=== PATIENT | female | born 1965 | race Caucasian/White ===

== ENCOUNTER 2022-09-06 07:51 | Outpatient (REF) | payer BC, SELFPAY ==
[2022-09-06 11:37] LABS: Appearance Urine Cloudy; Color Urine Yellow; Glucose Urine UA Negative (Negative); Leukocyte Esterase Urine Negative (Negative); Nitrite Urine Negative (Negative); Specific Gravity - Urine 1.015 (1.005-1.025); Urine Blood Negative (Negative); Urine Ketones Negative (Negative); Urine Protein Negative (Neg-Trace)
[2022-09-06 12:10] LABS: Alanine Aminotransferase 17 U/L (0-31); Albumin Level 4.3 g/dL (3.5-5.0); Alkaline Phosphatase 65 U/L (39-117); Anion Gap 11 (12-20); Aspartate Amino Transferase 13 U/L (5-31); Bilirubin Total 0.5 mg/dL (0.0-1.0); Blood Urea Nitrogen 15 mg/dL (9-16); Calcium 9.6 mg/dL (8.4-10.2); Carbon Dioxide 27 mmol/L (22-29); Chloride 105 mmol/L (96-108); Cholesterol 297 mg/dL; Estimated Glomerular Filt Rate > 60; Glucose Fasting 133 mg/dL (60-99); HDL Cholesterol 63 mg/dL; LDL Cholesterol Calculated 192 mg/dl; Potassium 4.1 mmol/L (3.3-5.1); Sodium 139 mmol/L (135-145); TSH reflex Free T4 1.08 uIU/mL (0.32-4.0); Total Protein 6.8 g/dL (6.5-8.0); Triglycerides 211 mg/dL
== END 2022-09-06 07:52 | disposition home or self-care (01) ==
LOC: HO.HMGCLDS 07:51
PROVIDERS: PCP Nurse Practitioner Family; Visit Provider Nurse Practitioner Family
DX: Z00.00 Encounter for general adult medical examination without abnormal findings (principal)
CPT/HCPCS: 36415; 80053; 80061; 81003; 84443

== ENCOUNTER 2023-04-29 07:43 | Outpatient (REF) | payer BC, SELFPAY ==
[2023-04-29 11:35] LABS: Estimated Average Glucose 120 mg/dL; Hemoglobin A1C 152.2036 umol/L; Hemoglobin A1c % 5.8 %
[2023-04-29 11:57] LABS: Alanine Aminotransferase 20 U/L (0-31); Albumin Level 4.3 g/dL (3.5-5.0); Alkaline Phosphatase 66 U/L (39-117); Anion Gap 20 (12-20); Aspartate Amino Transferase 16 U/L (5-31); Bilirubin Total 0.4 mg/dL (0.0-1.0); Blood Urea Nitrogen 12 mg/dL (9-16); Calcium 9.7 mg/dL (8.4-10.2); Carbon Dioxide 20 mmol/L (22-29); Chloride 104 mmol/L (96-108); Cholesterol 209 mg/dL; Estimated Glomerular Filt Rate > 60; Glucose Fasting 129 mg/dL (60-99); HDL Cholesterol 61 mg/dL; LDL Cholesterol Calculated 125 mg/dl; Potassium 4.1 mmol/L (3.3-5.1); Sodium 140 mmol/L (135-145); Total Protein 7.1 g/dL (6.5-8.0); Triglycerides 118 mg/dL
== END 2023-04-29 07:44 | disposition home or self-care (01) ==
LOC: HO.HMGCLDS 07:43
PROVIDERS: PCP Nurse Practitioner Family; Visit Provider Nurse Practitioner Family
DX: R73.01 Impaired fasting glucose (principal); E78.5 Hyperlipidemia, unspecified
CPT/HCPCS: 36415; 80053; 80061; 83036

== ENCOUNTER 2023-05-05 14:09 | Outpatient (AMB) | payer BC, SELFPAY ==
--- NOTE | 2023-05-05 14:10 | MHC.PC.OV ---
Intake Visit Reasons: [phone] 4 month f/u labs Allergies No Known Allergies Allergy (Verified 05/05/23 14:11) Medication List - Last Reconciled 05/05/23 by XAVI Vidal alprazolam 0.5 mg PO Q6-8H PRN ramipril 5 mg PO DAILY 90 days rosuvastatin (Crestor) 10 mg PO DAILY Tobacco use date assessed: 05/05/23 Dental Screening Dental Screen Date: 05/05/23 Did you have a dental visit in the last 12 months?: Yes Did you have a dental problem in the last 6 months where you did not have access to dental care?: No Was dental information given to patient?: Patient has dentist HPI [phone] 4 month f/u labs HPI Details Pt is a newly-diagnosed diabetic, on an MADONNA and a statin. Last A1c was 5.8. Due for microalbumin. Denies polyuria, polydipsia, and neuropathy. Pt denies any signs and symptoms of hypoglycemia and does know how to correct it. Will send meter and supplies. Educated on bid testing. Also educated pt on proper diet. Will refer to NN. Will follow up with pt [facility] Medical History Hypertension Surgical History History of cholecystectomy Family History Maternal Grandmother Hypertension Other Substance use disorder Social History Housing: House Patient Tobacco Use Status: Current someday Tobacco user Cigarette Packs Per Day: 0.5 Years Smoked: 30 years e-Cigarette/Vaping Use: Never Used Second Hand Smoke Exposure: Yes Current occupational status: employed Cognitive needs: No Hearing needs: No Vision needs: No Questionnaire Thrive Questionnaire Date Thrive assessed: 01/14/22 MARIBELL-7 AMB Questionnaire MARIBELL-7 Date MARIBELL - 7 assessed: 01/14/22 Source: Developed by Drs. Jaden Griffin, Camilla Draper, Demond Ramirez and colleagues, with an educational bambi from [employer]. Review of Systems Const Reports as per HPI Physical exam (Primary Care) Tobacco/Smoking Status: Tobacco use Status Tobacco use date assessed 05/05/23 05/05/23 14:13 Patient Tobacco Use Status Current someday Tobacco 05/05/23 14:13 e-Cigarette/Vaping Use Never Used 05/05/23 14:13 Thrive Assessment: Date of Thrive Assessment Date Thrive assessed 01/14/22 05/05/23 14:13 Const General: cooperative Orientation/consciousness: patient oriented x3 Neuro General: patient oriented x3 Psych Mental Status: mental status grossly normal Speech and movement: Clear speech present Affect: normal affect Attitude: cooperative Thought process: Normal thought process present Thought content: Normal thought content present Insight: Good insight present (Psych) Judgement: Good judgement present (Psych) Telehealth Telehealth Location of provider rendering services: practice address Location of patient: address on file Patient Identification confirmed using: Name, : Yes Telehealth method: voice only Patient verbally consented to treatment: Yes Patient verbally consented to billing insurance company: Yes Patient informed of any privacy concerns related to visit: Yes Minutes spent on Phone/Video with Pt.: 10 Assessment and Plan Assessment & Plan (1) Newly diagnosed diabetes: Code(s): E11.9 - Type 2 diabetes mellitus without complications Plan The patient agreed to the use of a outside medical sales representative for this encounter. Scribed for XAVI Mejia by Madison Tobin outside medical sales representative, on 05/05/2023 at 14:15 EST. Orders: Referrals Nurse Navigator Referral E11.9 - Type 2 diabetes mellitus without complications Coding Level of Care Code Tele Est Pt Level 3 (43304) Diagnoses Newly diagnosed diabetes E11.9
== END 2023-05-05 15:40 | disposition home or self-care (01) ==
LOC: HO.HMGC 14:09
PROVIDERS: PCP Nurse Practitioner Family; Visit Provider Nurse Practitioner Family
DX: E11.9 Type 2 diabetes mellitus without complications (principal)
CPT/HCPCS: 99441

== ENCOUNTER 2023-09-07 09:18 | Outpatient (AMB) | payer BC, SELFPAY ==
--- NOTE | 2023-09-07 09:19 | MHC.PC.OV ---
Vital Signs 09/07/23 09:23 12 12:16 Height 5 ft 4 in Weight 204 lb BMI 35.0 BP 120/90 H 124/84 Blood Pressure Location Rt brachial Position Sitting Pulse 105 H Pulse Source Pulse Oximeter Pulse Oximetry (%) 98 Oxygen Delivery Method Room Air Intake Visit Reasons: Diabetes follow up Intake Note: Patient here for Diabetes follow up. Pt states sugars have been pretty good. Allergies No Known Allergies Allergy (Verified 09/07/23 09:24) Tobacco use date assessed: 05/05/23 HPI Diabetes follow up HPI Details Pt is a diabetic, on an MADONNA and a statin. A1C in office today is 6.6. Due for microalbumin, will order. Denies polyuria, polydipsia, and neuropathy. Pt denies any signs and symptoms of hypoglycemia and does know how to correct it. Pt reports that her blood sugar is typically in the 130s, highest was 150. Eye exam is up to date. Pt is working on her diet. Pt smokes up to 3 cigarettes per day so she does not qualify for low-dose CTs. Encouraged pt to quit. [facility] Medical History Hypertension Surgical History History of cholecystectomy Family History Maternal Grandmother Hypertension Other Substance use disorder Social History Housing: House Patient Tobacco Use Status: Current someday Tobacco user Cigarette Packs Per Day: 0.5 Years Smoked: 30 years Packs Per Year: 0 e-Cigarette/Vaping Use: Never Used Second Hand Smoke Exposure: Yes Current occupational status: employed Cognitive needs: No Hearing needs: No Vision needs: No Questionnaire Thrive Questionnaire Date Thrive assessed: 01/14/22 MARIBELL-7 AMB Questionnaire MARIBELL-7 Date MARIBELL - 7 assessed: 01/14/22 Source: Developed by Drs. Jaden Griffin, Camilla Draper, Demond Ramirez and colleagues, with an educational bambi from [employer]. Review of Systems Const Reports as per HPI Physical exam (Primary Care) Vital Signs: Last Vital Signs Pulse 105 H 09/07/23 09:23 BP 120/90 H 09/07/23 09:23 Pulse Ox 98 09/07/23 09:23 Oxygen Delivery Method Room Air 09/07/23 09:23 BMI result Body Mass Index 35.0 Tobacco/Smoking Status: Tobacco use Status Tobacco use date assessed 05/05/23 09/07/23 09:20 Patient Tobacco Use Status Current someday Tobacco 09/07/23 09:20 e-Cigarette/Vaping Use Never Used 09/07/23 09:20 Thrive Assessment: Date of Thrive Assessment Date Thrive assessed 01/14/22 12 09:20 Const General: cooperative Nutritional Appearance: obese Orientation/consciousness: patient oriented x3 Resp Effort & Inspection: normal respiratory effort Auscultation: clear to auscultation bilaterally Cardio Rate: regular rate Rhythm: regular rhythm Heart sounds: S1 normal heart sound present and S2 normal heart sound present Neuro General: patient oriented x3 Extrem Other: bilat feet: + sensation with use of monofilament Psych Appearance: grossly normal Mental Status: mental status grossly normal Speech and movement: Normal speech and movement present Affect: normal affect Attitude: cooperative Thought process: Normal thought process present Thought content: Normal thought content present Insight: Good insight present (Psych) Judgement: Good judgement present (Psych) Results AMB Hemoglobin A1c AMB Hemoglobin A1c 6.6 % Last Edit by GÉNESIS Russo on 09/07/23 09:39 Immunizations pneumoc 20-jaclyn conj-dip cr(PF) 0.5 mL IM syringe Performing Provider: XAVI Vidal [place] [facility] [place] [facility] Administered by: GÉNESIS Russo on 09/07/23 10:09 Dose Route Admin Location Dispensed Lot Number Expiration Date NDC Finisher [employer] 0.5 mL IM Right Deltoid 0.5 mL [id number] 06/01/24 7391-1808-70 [employer]/ubitus VIS Given Date VIS Provided VIS Publication Date 09/07/23 Single Vaccine 21 Eligibility Eligibility Date Funding Source Not VFC Eligible 09/07/23 Private Results Reviewed Results Reviewed: Laboratory Last Values Hgb A1c (Clinic) 6.6 % (4.0-6.0) H 09/07/23 09:39 Assessment and Plan Assessment & Plan (1) Diabetes: Code(s): E11.9 - Type 2 diabetes mellitus without complications Plan: Labs ordered Plan The patient agreed to the use of a medical instrument technician for this encounter. Scribed for XAVI Mejia by Madison Tboin medical instrument technician, on 09/07/2023 at 09:45 EST. Orders: Orders Complete Blood Count Auto Diff Today E11.9 - Type 2 diabetes mellitus without complications Comprehensive [place]. Panel Fast Today E11.9 - Type 2 diabetes mellitus without complications UA CC w/rflx Micro + Cult Today E11.9 - Type 2 diabetes mellitus without complications Lipid Panel Today E11.9 - Type 2 diabetes mellitus without complications Microalbumin, Random (w Creat) Today E11.9 - Type 2 diabetes mellitus without complications Pneumococcal 20 Immunization Today Z23 - Encounter for immunization AMB Hemoglobin A1c Today Z13.9 - Encounter for screening, unspecified TSH reflex Free T4 Today E11.9 - Type 2 diabetes mellitus without complications Coding Level of Care Code Est Pt Level 3 (96146) Diagnoses Diabetes E11.9
[2023-09-07 09:23] VITALS: BP 120/90; PULSE 105; O2SAT 98; BMI 35.0
[2023-09-07 12:16] VITALS: BP 124/84
== END 2023-09-07 14:24 | disposition home or self-care (01) ==
PROVIDERS: PCP Nurse Practitioner Family; Visit Provider Nurse Practitioner Family
DX: Z23 Encounter for immunization (principal); E11.9 Type 2 diabetes mellitus without complications; Z13.9 Encounter for screening, unspecified
CPT/HCPCS: 83036; 90471; 90677; 99213

== ENCOUNTER 2023-11-02 07:03 | Outpatient (REF) | payer BC, SELFPAY ==
[2023-11-02 11:24] LABS: MANUAL DIFF FLAG NO
[2023-11-02 11:34] LABS: Appearance Urine Clear; Color Urine Yellow; Glucose Urine UA Negative (Negative); Leukocyte Esterase Urine Negative (Negative); Nitrite Urine Negative (Negative); PH 6.5 (5.0-9.0); Specific Gravity - Urine 1.015 (1.005-1.025); Urine Blood Negative (Negative); Urine Ketones Negative (Negative); Urine Protein Negative (Neg-Trace)
[2023-11-02 11:49] LABS: Basophils Absolute Auto 0.1 X10*3/uL (0.0-0.2); Basophils Percent Auto 0.7 % (0-2); Eosinophils Absolute Auto 0.5 X10*3/uL (0.0-0.4); Eosinophils Percent Auto 4.7 % (0-4); Hematocrit 44.3 % (37.0-47.0); Hemoglobin 14.7 g/dl (12.0-16.0); Imm Gran Abs Auto 0.06 X10*3/uL (0.00-0.03); Imm Gran Pct Auto 0.6 % (0.0-0.4); Lymphocytes Absolute Auto 3.8 X10*3/uL (1.2-4.9); Lymphocytes Percent Auto 37.9 % (20-40); Mean Corpuscular HGB Conc 33.2 g/dl (31.0-35.0); Mean Corpuscular Hemoglobin 30.8 pg (27.0-33.0); Mean Corpuscular Volume 92.7 fL (80.0-98.0); Mean Platelet Volume 9.4 fL (9.4-12.3); Monocytes Absolute Auto 0.7 X10*3/uL (0.1-1.2); Monocytes Percent Auto 7.4 % (2-11); Neutrophils Absolute Auto 4.8 x10*3/uL (2.0-8.3); Neutrophils Percent Auto 48.7 % (45-73); Platelet Count 340 X10*3/uL (160-400); Red Blood Count 4.78 X10*6/uL (4.20-5.50); Red Cell Distribution Width 13.2 % (11.0-16.0); White Blood Count 9.9 X10*3/uL (4.8-10.8)
[2023-11-02 12:16] LABS: Alanine Aminotransferase 23 U/L (0-31); Albumin Level 4.3 g/dL (3.5-5.0); Alkaline Phosphatase 72 U/L (39-117); Anion Gap 15 (12-20); Aspartate Amino Transferase 17 U/L (5-31); Bilirubin Total 0.2 mg/dL (0.0-1.0); Blood Urea Nitrogen 13 mg/dL (9-16); Calcium 9.4 mg/dL (8.4-10.2); Carbon Dioxide 24 mmol/L (22-29); Chloride 105 mmol/L (96-108); Cholesterol 189 mg/dL (<200); Estimated Glomerular Filt Rate > 60; Glucose Fasting 129 mg/dL (60-99); HDL Cholesterol 55 mg/dL (>40); LDL Cholesterol Calculated 98 mg/dL (<100); Potassium 4.6 mmol/L (3.3-5.1); Sodium 139 mmol/L (135-145); TSH reflex Free T4 0.99 uIU/mL (0.32-4.0); Total Protein 7.1 g/dL (6.5-8.0); Triglycerides 182 mg/dL (<150)
[2023-11-02 12:39] LABS: Creatinine Urine 66.12 mg/dL; Microalbum/Creatinine Ratio Ur 18.1 ug/mg cr (<30)
== END 2023-11-02 07:04 | disposition home or self-care (01) ==
LOC: HO.HMGCLDS 07:03
PROVIDERS: PCP Nurse Practitioner Family; Visit Provider Nurse Practitioner Family
DX: E11.9 Type 2 diabetes mellitus without complications (principal)
CPT/HCPCS: 36415; 80053; 80061; 81003; 82043; 82570; 84443; 85025

== ENCOUNTER 2024-01-25 08:59 | Outpatient (AMB) | payer BC, SELFPAY ==
--- NOTE | 2024-01-25 09:07 | A.OFFPC_ITS ---
Vital Signs 01/25/24 09:10 Height 5 ft 4 in Weight 199 lb 4 oz BMI 34.2 BP 130/88 Blood Pressure Location Rt brachial Position Sitting Pulse 68 Pulse Source Pulse Oximeter Pulse Oximetry (%) 96 Oxygen Delivery Method Room Air Intake Visit Reasons: follow up DM Intake Note: Patient here for diabetes f/u. Allergies No Known Allergies Allergy (Verified 01/25/24 09:11) Tobacco use date assessed: 01/25/24 Dental Screening Dental Screen Date: 01/25/24 Did you have a dental visit in the last 12 months?: Yes Did you have a dental problem in the last 6 months where you did not have access to dental care?: No Was dental information given to patient?: Patient has dentist HPI follow up DM HPI Details Pt is a diabetic, on an MADONNA and a statin. A1C in office today is 6.4. Microalbumin is up to date. Denies polyuria, polydipsia, and neuropathy. Pt denies any signs and symptoms of hypoglycemia and does know how to correct it. Pt reports that her blood sugar has been mostly in the 110s. Eye exam is scheduled. [facility] Medical History Hypertension Surgical History History of cholecystectomy Family History Maternal Grandmother Hypertension Other Substance use disorder Social History Housing: House Patient Tobacco Use Status: Current someday Tobacco user Cigarette Packs Per Day: 0.5 Years Smoked: 30 years e-Cigarette/Vaping Use: Never Used Second Hand Smoke Exposure: Yes Current occupational status: employed Cognitive needs: No Hearing needs: No Vision needs: No Questionnaire Thrive Questionnaire Date Thrive assessed: 01/14/22 AUDIT C Alcohol Use Questionnaire (AUDIT-C) 1. How often do you have a drink containing alcohol?: 2-3 times a week 2. How many drinks containing alcohol do you have on a typical day when you are drinking?: 1 or 2 3. How often do you have six or more drinks on one occasion?: Never Total Score: 3 Score Reviewed/Action Taken: No MARIBELL-7 AMB Questionnaire MARIBELL-7 Date MARIBELL - 7 assessed: 01/14/22 Source: Developed by Drs. Jaden Griffin, Camilla Draper, Demond Ramirez and colleagues, with an educational bambi from [employer]. Review of Systems Const Reports as per HPI Physical exam (Primary Care) Vital Signs: Last Vital Signs Pulse 68 01/25/24 09:10 BP 130/88 01/25/24 09:10 Pulse Ox 96 01/25/24 09:10 Oxygen Delivery Method Room Air 01/25/24 09:10 BMI result Body Mass Index 34.2 Tobacco/Smoking Status: Tobacco use Status Tobacco use date assessed 01/25/24 01/25/24 09:11 Patient Tobacco Use Status Current someday Tobacco 01/25/24 09:09 e-Cigarette/Vaping Use Never Used 01/25/24 09:09 Thrive Assessment: Date of Thrive Assessment Date Thrive assessed 01/14/22 01/25/24 09:09 Const General: cooperative Nutritional Appearance: obese Orientation/consciousness: patient oriented x3 Resp Effort & Inspection: normal respiratory effort Auscultation: clear to auscultation bilaterally Cardio Rate: regular rate Rhythm: regular rhythm Heart sounds: S1 normal heart sound present and S2 normal heart sound present Neuro General: patient oriented x3 Extrem Other: bilat feet: + sensation with use of monofilament, feet intact Psych Appearance: grossly normal Mental Status: mental status grossly normal Speech and movement: Normal speech and movement present Affect: normal affect Attitude: cooperative Thought process: Normal thought process present Thought content: Normal thought content present Insight: Good insight present (Psych) Judgement: Good judgement present (Psych) Assessment and Plan Assessment & Plan (1) Screening for colon cancer: Code(s): Z12.11 - Encounter for screening for malignant neoplasm of colon Plan: Referred to GI (2) Diabetes: Code(s): E11.9 - Type 2 diabetes mellitus without complications Plan The patient agreed to the use of a medical service representative for this encounter. Scribed for XAIV Mejia by Madison Tobin medical service representative, on 01/25/2024 at 09:20 EST. Orders: Referrals Gastroenterology Referral Z12.11 - Encounter for screening for malignant neoplasm of colon Coding Level of Care Code Est Pt Level 3 (87592) Diagnoses Screening for colon cancer Z12.11 Diabetes E11.9
[2024-01-25 09:10] VITALS: BP 130/88; PULSE 68; O2SAT 96; BMI 34.2
== END 2024-01-25 09:31 | disposition home or self-care (01) ==
PROVIDERS: PCP Nurse Practitioner Family; Visit Provider Nurse Practitioner Family
DX: E11.9 Type 2 diabetes mellitus without complications (principal); Z12.11 Encounter for screening for malignant neoplasm of colon
CPT/HCPCS: 83036; 99213

== ENCOUNTER 2024-06-25 08:01 | Outpatient (AMB) | payer BC, SELFPAY ==
--- NOTE | 2024-06-25 08:03 | MHC.PC.OV ---
Vital Signs 06/25/24 08:04 Height 5 ft 4 in Weight 198 lb BMI 34.0 BP 122/86 Blood Pressure Location Rt brachial Position Sitting Pulse 81 Pulse Source Pulse Oximeter Pulse Oximetry (%) 97 Intake Visit Reasons: DM f/u Intake Note: pt is here for follow up regarding DM Security System Engineer Required: No Accompanied by: Self / Same As Patient Allergies No Known Allergies Allergy (Verified 06/25/24 08:05) Medication List - Last Reconciled 06/25/24 by XAVI Vidal alcohol swabs 1 topically 3 times a day; alprazolam 0.5 mg PO Q6-8H PRN FreeStyle Lancets (lancets) TID testing NS FreeStyle Lite Meter (blood-glucose meter) TID testing NS FreeStyle Lite Strips (blood sugar diagnostic) TID testing NS ramipril 5 mg PO DAILY 90 days rosuvastatin (Crestor) 10 mg PO DAILY Tobacco use date assessed: 01/25/24 Dental Screening Dental Screen Date: 01/25/24 HPI DM f/u HPI Details Pt is a diabetic, on an MADONNA and a statin. A1C in office today is 6.7. Microalbumin is up to date. Denies polyuria, polydipsia, and neuropathy. Pt denies any signs and symptoms of hypoglycemia and does know how to correct it. Eye exam is up to date. Pt is a smoker, refused low-dose CT. [facility] Medical History Hypertension Surgical History History of cholecystectomy Family History Maternal Grandmother Hypertension Other Substance use disorder Social History Housing: House Patient Tobacco Use Status: Current someday Tobacco user Cigarette Packs Per Day: 0.5 Years Smoked: 30 years e-Cigarette/Vaping Use: Never Used Second Hand Smoke Exposure: Yes service: No Current occupational status: employed Current occupational exposures/hazards: No Cognitive needs: No Hearing needs: No Vision needs: No Questionnaire PHQ-9 Over the last 2 weeks, how often have you been bothered by any of the following problems? 1. Little interest or pleasure in doing things: not at all 2. Feeling down, depressed, or hopeless: not at all 3. Trouble falling or staying asleep, or sleeping too much: not at all 4. Feeling tired or having little energy: not at all 5. Poor appetite or overeating: not at all 6. Feeling bad about yourself - or that you are a failure or have let yourself or your family down: not at all 7. Trouble concentrating on things, such as reading the newspaper or watching television: not at all 8. Moving or speaking so slowly that other people could have noticed. Or the opposite - being so fidgety or restless that you have been moving around a lot more than usual: not at all 9. Thoughts that you would be better off or of hurting yourself in some way: not at all Total score: 0 Depression Screening Interpretation: Negative Depression Screening Done: Yes 24544 - PHQ-9 Billing: Yes Source: Developed by Drs. Jaden Griffin, Camilla Draper, Demond Ramirez and colleagues, with an educational bambi from [employer]. Thrive Questionnaire Date Thrive assessed: 06/25/24 I am a: Patient What is your living situation today?: I have a steady place to live Within the past 12 months, did the food you bought not last and you didn't have the money to get more?: Never true Within the past 12 months, did you worry whether your food would run out before you got money to buy more?: Never true Do you have trouble paying for medicines?: No Do you have trouble getting transportation to medical appointments?: No Do you have trouble paying your heating and electricity bill?: No Do you have trouble taking care of your child, family member or friend?: No Do you have trouble with day-to-day activities such as bathing, preparing meals, shopping, managing finances, etc.?: No Are you currently unemployed and looking for a job?: No Are you interested in more education?: No Please select the resources that you would like help with: None Currently or been in a relationship where the following occur: No concerns reported THRIVE Score: 0 AUDIT C Alcohol Use Questionnaire (AUDIT-C) 1. How often do you have a drink containing alcohol?: Monthly or less 2. How many drinks containing alcohol do you have on a typical day when you are drinking?: 1 or 2 3. How often do you have six or more drinks on one occasion?: Never Total Score: 1 Score Reviewed/Action Taken: Yes MARIBELL-7 AMB Questionnaire MARIBELL-7 Date MARIBELL - 7 assessed: 06/25/24 Feeling nervous, anxious, or on edge: 0 = Not at all Not being able to stop or control worryin = Not at all Worrying too much about different things: 0 = Not at all Trouble relaxin = Not at all Being so restless that it is hard to sit still: 0 = Not at all Becoming easily annoyed or irritable: 0 = Not at all Feeling afraid as if something awful might happen: 0 = Not at all Total MARIBELL-7 score (0-4 normal; 5-9 mild; 10-14 moderate; 15-21 severe): 0 Source: Developed by Drs. Jaden Griffin, Camilla Draper, Demond Ramirez and colleagues, with an educational bambi from [employer]. MARIBELL-7 Assessment Billing MARIBELL-7 Assessment Tool: MARIBELL-7 Assessment [id number] Review of Systems Const Reports as per HPI Physical exam (Primary Care) Vital Signs: Last Vital Signs Pulse 81 06/25/24 08:04 BP 122/86 06/25/24 08:04 Pulse Ox 97 06/25/24 08:04 BMI result Body Mass Index 34.0 Tobacco/Smoking Status: Tobacco use Status Tobacco use date assessed 01/25/24 06/25/24 08:06 Patient Tobacco Use Status Current someday Tobacco 06/25/24 08:06 e-Cigarette/Vaping Use Never Used 06/25/24 08:06 PHQ-9: PHQ-9 Score PHQ-9: Total score 0 06/25/24 08:20 Depression Screening Interpretation: Negative Thrive Assessment: Date of Thrive Assessment Date Thrive assessed 06/25/24 06/25/24 08:06 Currently or been in a relationship where the following occur: No concerns reported Const General: cooperative Nutritional Appearance: obese Orientation/consciousness: patient oriented x3 Resp Other: lungs fairly clear Effort & Inspection: normal respiratory effort Cardio Rate: regular rate Rhythm: regular rhythm Heart sounds: S1 normal heart sound present and S2 normal heart sound present Neuro General: patient oriented x3 Extrem Other: bilat feet: + sensation with use of monofilament, feet intact Psych Appearance: grossly normal Mental Status: mental status grossly normal Speech and movement: Normal speech and movement present Affect: normal affect Attitude: cooperative Thought process: Normal thought process present Thought content: Normal thought content present Insight: Good insight present (Psych) Judgement: Good judgement present (Psych) Results AMB Hemoglobin A1c AMB Hemoglobin A1c 6.7 % Last Edit by Ramón Jones CMA on 06/25/24 08:22 Results Reviewed Results Reviewed: Laboratory Last Values Hgb A1c (Clinic) 6.7 % (4.0-6.0) H 06/25/24 08:22 Assessment and Plan Assessment & Plan (1) Diabetes: Code(s): E11.9 - Type 2 diabetes mellitus without complications Plan: Labs ordered Plan The patient agreed to the use of a curator medical museum for this encounter. Scribed for XAVI Mejia by Madison Tobin curator medical museum, on 06/25/2024 at 08:15 EST. Orders: Orders AMB Hemoglobin A1c Today Z13.9 - Encounter for screening, unspecified Complete Blood Count Auto Diff Today E11.9 - Type 2 diabetes mellitus without complications TSH reflex Free T4 Today E11.9 - Type 2 diabetes mellitus without complications Lipid Panel Today E11.9 - Type 2 diabetes mellitus without complications Comprehensive [place]. Panel Fast Today E11.9 - Type 2 diabetes mellitus without complications UA CC w/rflx Micro + Cult Today E11.9 - Type 2 diabetes mellitus without complications Microalbumin, Random (w Creat) Today E11.9 - Type 2 diabetes mellitus without complications Coding Level of Care Code Est Pt Level 3 (22647) Diagnoses Diabetes E11.9 Additional Codes MARIBELL-7 Assessment Billing - MARIBELL-7 Assessment Tool: MARIBELL-7 Assessment [id number] ([id number])
[2024-06-25 08:04] VITALS: BP 122/86; PULSE 81; O2SAT 97; BMI 34.0
== END 2024-06-25 10:34 | disposition home or self-care (01) ==
PROVIDERS: PCP Nurse Practitioner Family; Visit Provider Nurse Practitioner Family
DX: E11.9 Type 2 diabetes mellitus without complications (principal); Z13.9 Encounter for screening, unspecified

== ENCOUNTER → 2024-06-25 08:01 | Outpatient (BNVA) | payer BC, SELFPAY | PROVIDERS: PCP Nurse Practitioner Family; Visit Provider Nurse Practitioner Family | DX: E11.9 Type 2 diabetes mellitus without complications (principal); F17.210 Nicotine dependence, cigarettes, uncomplicated; Z79.899 Other long term (current) drug therapy | CPT/HCPCS: 83036; 96127 ==

== ENCOUNTER 2024-12-21 07:14 | Outpatient (REF) | payer BC, SELFPAY ==
[2024-12-21 10:10] LABS: MANUAL DIFF FLAG NO
[2024-12-21 10:21] LABS: Basophils Percent Auto 0.4 % (0-2); Eosinophils Absolute Auto 0.2 X10*3/uL (0.0-0.4); Hematocrit 43.2 % (37.0-47.0); Hemoglobin 14.4 g/dl (12.0-16.0); Imm Gran Abs Auto 0.02 X10*3/uL (0.00-0.03); Imm Gran Pct Auto 0.2 % (0.0-0.4); Lymphocytes Absolute Auto 3.2 X10*3/uL (1.2-4.9); Lymphocytes Percent Auto 35.1 % (20-40); Mean Corpuscular HGB Conc 33.3 g/dl (31.0-35.0); Mean Corpuscular Hemoglobin 30.6 pg (27.0-33.0); Mean Corpuscular Volume 91.9 fL (80.0-98.0); Mean Platelet Volume 9.6 fL (9.4-12.3); Monocytes Absolute Auto 0.6 X10*3/uL (0.1-1.2); Monocytes Percent Auto 6.9 % (2-11); Neutrophils Percent Auto 55.4 % (45-73); Platelet Count 353 X10*3/uL (160-400); Red Cell Distribution Width 12.9 % (11.0-16.0)
[2024-12-21 10:52] LABS: Alanine Aminotransferase 20 U/L (0-31); Albumin Level 4.3 g/dL (3.5-5.0); Alkaline Phosphatase 69 U/L (39-117); Anion Gap 11 (12-20); Aspartate Amino Transferase 19 U/L (5-31); Bilirubin Total 0.3 mg/dL (0.0-1.0); Blood Urea Nitrogen 13 mg/dL (9-16); Calcium 9.5 mg/dL (8.4-10.2); Carbon Dioxide 26 mmol/L (22-29); Chloride 107 mmol/L (96-108); Cholesterol 178 mg/dL (<200); Estimated Glomerular Filt Rate > 60; Glucose Fasting 126 mg/dL (60-99); HDL Cholesterol 56 mg/dL (>40); LDL Cholesterol Calculated 100 mg/dL (<100); Potassium 4.2 mmol/L (3.3-5.1); Sodium 140 mmol/L (135-145); Total Protein 7.6 g/dL (6.5-8.0); Triglycerides 112 mg/dL (<150)
[2024-12-21 10:58] LABS: TSH reflex Free T4 0.84 uIU/mL (0.32-4.0)
== END 2024-12-21 07:15 | disposition home or self-care (01) ==
LOC: HO.HMGCLDS 07:14
PROVIDERS: PCP Nurse Practitioner Family; Visit Provider Nurse Practitioner Family
DX: E11.9 Type 2 diabetes mellitus without complications (principal)
CPT/HCPCS: 36415; 80053; 80061; 84443; 85025

== ENCOUNTER 2024-12-25 08:52 | Outpatient (AMB) | payer BC, SELFPAY ==
--- NOTE | 2024-12-25 08:57 | MHC.PC.OV ---
Vital Signs 12/25/24 09:01 Height 5 ft 4 in Weight 193 lb BMI 33.1 BP 122/78 Blood Pressure Location Lt brachial Position Sitting Respiration 20 Pulse 91 Pulse Source Pulse Oximeter Temp 98.4 F Temp Source Oral Pulse Oximetry (%) 96 Oxygen Delivery Method Room Air Intake Visit Reasons: Annual Physical Intake Note: Pt is here today for her annual physical. Allergies No Known Allergies Allergy (Verified 12/25/24 09:01) Medication List - Last Reconciled 12/25/24 by CINDY Vidal alcohol swabs 1 topically 3 times a day; alprazolam 0.5 mg PO Q6-8H PRN FreeStyle Lancets (lancets) TID testing NS FreeStyle Lite Meter (blood-glucose meter) TID testing NS FreeStyle Lite Strips (blood sugar diagnostic) TID testing NS ramipril 5 mg PO DAILY 90 days rosuvastatin (Crestor) 10 mg PO DAILY Tobacco use date assessed: 12/25/24 Dental Screening Dental Screen Date: 12/25/24 Did you have a dental visit in the last 12 months?: Yes Did you have a dental problem in the last 6 months where you did not have access to dental care?: No Was dental information given to patient?: Patient has dentist HPI Annual Physical HPI Details History of Present Illness The patient is a 59-year-old female presenting for a physical exam and management of diabetes mellitus. She intermittently monitors her blood sugar levels, with her most recent A1c recorded at 6.7. Her mammogram is up to date. Despite being advised, she refuses a colonoscopy but agrees to a Cologuard test. The patient, who has a history of smoking, also declined low-dose CAT scans. She is consistent with her gynecological follow-ups and denies any significant physical symptoms such as chest pain, gastrointestinal issues, and urinary complaints. Additionally, she denies any mood disorder symptoms. please see labs. Microalbumin ordered, was not done yet. Health Maintenance - Mammogram: Up to date - Refusal of low-dose CT scans for lung cancer screening due to smoking history - Refusal of colonoscopy; agreed to Cologuard testing - Recommended GLP-1 agonist for weight management and diabetes control Social History - Smoking history discussed, refusal of associated screening. - Has regular follow-ups with a mounter [employer]. Review of Systems - Cardiovascular: Denies chest pain, shortness of breath. - Gastrointestinal: Denies abdominal pain, blood in stool, constipation, or diarrhea. - Genitourinary: Denies urinary issues. - Neurology: Denies polyuria, polydipsia, neuropathy. - Psychiatric: Denies anxiety, depression, suicidal or homicidal ideation. Physical Exam General: Cooperative, healthy appearing, comfortable, no acute distress and well developed Orientation: Patient oriented x3 Limitations: No limitations Head: Normal to inspection Ears: Hearing grossly normal bilaterally Nose: Normal external nose present Face and sinus: Normal facial exam Eyes: Appearance normal, both eyes and all related structures Neck: Normal visual inspection and Yes full ROM Respiratory: Slightly diminished in bases, able to speak in complete sentences. Clear to auscultation bilaterally Cardiovascular: Regular rate and rhythm. Normal S1 and S2 GI: Normal to inspection. Soft to palpation and nontender Skin: No rashes or lesions noted Neuro: Patient oriented x3 Extremities: Normal to inspection Results - A1c: 6.7, indicating diabetes management Plan For managing diabetes mellitus, a GLP-1 agonist will be added to her treatment plan to aid in weight loss and glycemic control. The patient declined a colonoscopy but agreed to undergo non-invasive Cologuard testing. Her mammogram remains up to date, requiring no additional follow-up. Despite a smoking history, she refused low-dose CT scans for lung cancer screening, preferring not to pursue this. Regular gynecological follow-ups are maintained, and discussion on her smoking cessation was encouraged. Discussion Notes I discussed the patient's diabetes management and the addition of GLP-1 agonist therapy to support weight management and improve glycemic control. We reviewed colorectal cancer screening options, leading to her agreement on Cologuard testing after declining a colonoscopy. The implications of her smoking history and low-dose CT lung screening were addressed, although she opted out of the scan. Routine mammography and gynecology follow-ups were confirmed. Discussions included an emphasis on smoking cessation benefits and lifestyle changes for diabetes management. Risks and benefits of each option were thoroughly discussed, ensuring the patient's questions and preferences were addressed. Patient Instructions - Please ensure continued monitoring of blood sugar levels. - Begin the prescribed GLP-1 agonist therapy as discussed for diabetes management. - Look out for any symptoms related to complications from diabetes, such as persistent tingling in extremities, increased urination, or unusual fatigue, and report them promptly. - Follow up with Cologuard testing as planned for colon cancer screening. - Continue your regular scheduled mammograms and gynecology appointments. - Consider smoking cessation resources for health improvement. [facility] Medical History Hypertension Surgical History History of cholecystectomy Family History Maternal Grandmother Hypertension Other Substance use disorder Social History Housing: House Patient Tobacco Use Status: Current someday Tobacco user Cigarette Packs Per Day: 0.5 Years Smoked: 30 years e-Cigarette/Vaping Use: Never Used Second Hand Smoke Exposure: Yes service: No Current occupational status: employed Current occupational exposures/hazards: No Cognitive needs: No Hearing needs: No Vision needs: No Questionnaire PHQ-9 Over the last 2 weeks, how often have you been bothered by any of the following problems? 1. Little interest or pleasure in doing things: not at all 2. Feeling down, depressed, or hopeless: not at all 3. Trouble falling or staying asleep, or sleeping too much: not at all 4. Feeling tired or having little energy: not at all 5. Poor appetite or overeating: not at all 6. Feeling bad about yourself - or that you are a failure or have let yourself or your family down: not at all 7. Trouble concentrating on things, such as reading the newspaper or watching television: not at all 8. Moving or speaking so slowly that other people could have noticed. Or the opposite - being so fidgety or restless that you have been moving around a lot more than usual: not at all 9. Thoughts that you would be better off or of hurting yourself in some way: not at all Total score: 0 Depression Screening Interpretation: Negative Depression Screening Done: Yes 33726 - PHQ-9 Billing: Yes Source: Developed by Drs. Jaden Griffin, Camilla Draper, Demond Ramirez and colleagues, with an educational bambi from [employer]. Thrive Questionnaire Date Thrive assessed: 12/25/24 I am a: Patient What is your living situation today?: I have a steady place to live Within the past 12 months, did the food you bought not last and you didn't have the money to get more?: Never true Within the past 12 months, did you worry whether your food would run out before you got money to buy more?: Never true Do you have trouble paying for medicines?: No Do you have trouble getting transportation to medical appointments?: No Do you have trouble paying your heating and electricity bill?: No Do you have trouble taking care of your child, family member or friend?: No Do you have trouble with day-to-day activities such as bathing, preparing meals, shopping, managing finances, etc.?: No Are you currently unemployed and looking for a job?: No Are you interested in more education?: No Please select the resources that you would like help with: None Currently or been in a relationship where the following occur: No concerns reported THRIVE Score: 0 AUDIT C Alcohol Use Questionnaire (AUDIT-C) 1. How often do you have a drink containing alcohol?: Never 3. How often do you have six or more drinks on one occasion?: Never Total Score: 0 Score Reviewed/Action Taken: Yes MARIBELL-7 AMB Questionnaire MARIBELL-7 Date MARIBELL - 7 assessed: 12/25/24 Feeling nervous, anxious, or on edge: 0 = Not at all Not being able to stop or control worryin = Not at all Worrying too much about different things: 0 = Not at all Trouble relaxin = Not at all Being so restless that it is hard to sit still: 0 = Not at all Becoming easily annoyed or irritable: 0 = Not at all Feeling afraid as if something awful might happen: 0 = Not at all Total MARIBELL-7 score (0-4 normal; 5-9 mild; 10-14 moderate; 15-21 severe): 0 Source: Developed by Drs. Jaden Griffin, Camilla Draper, Demond Ramirez and colleagues, with an educational bambi from [employer] MARIBELL-7 Assessment Billing MARIBELL-7 Assessment Tool: MARIBELL-7 Assessment 80144 Physical exam (Primary Care) Vital Signs: Last Vital Signs Temp 98.4 F 12/25/24 09:01 Pulse 91 03/25/25 09:01 Resp 20 12/25/24 09:01 BP 122/78 12/25/24 09:01 Pulse Ox 96 12/25/24 09:01 Oxygen Delivery Method Room Air 12/25/24 09:01 BMI result Body Mass Index 33.1 Tobacco/Smoking Status: Tobacco use Status Tobacco use date assessed 12/25/24 12/25/24 08:59 Patient Tobacco Use Status Current someday Tobacco 12/25/24 08:59 e-Cigarette/Vaping Use Never Used 12/25/24 08:59 PHQ-9: PHQ-9 Score PHQ-9: Total score 0 12/25/24 10:03 Depression Screening Interpretation: Negative Thrive Assessment: Date of Thrive Assessment Date Thrive assessed 12/25/24 12/25/24 08:59 Currently or been in a relationship where the following occur: No concerns reported Coding Level of Care Code Est Pt Prev Care 40-64y(47328) Diagnoses Diabetes E11.9 Physical exam Z00.00 Additional Codes MARIBELL-7 Assessment Billing - MARIBELL-7 Assessment Tool: MARIBELL-7 Assessment 65921 ([id number]) PHQ-9 - 33650 - PHQ-9 Billing: Yes ([id number]) Assessment & Plan Assessment & Plan (1) Diabetes: Code(s): E11.9 - Type 2 diabetes mellitus without complications Category: Medical (2) Physical exam: Code(s): Z00.00 - Encounter for general adult medical examination without abnormal findings Category: Medical Plan . Orders: Orders UA CC w/rflx Micro + Cult Today E11.9 - Type 2 diabetes mellitus without complications AMB Hemoglobin A1c Today Z13.9 - Encounter for screening, unspecified Referrals Cologuard Test Z12.11 - Encounter for screening for malignant neoplasm of colon, Z12.12 - Encounter for screening for malignant neoplasm of rectum Medications: New tirzepatide (Mounjaro) for 4 weeks 2.5 mg (0.5 mL) subcut QWEEK 2 mL 0RF
[2024-12-25 09:01] VITALS: BP 122/78; PULSE 91; RESP 20; TEMP 36.9; O2SAT 96; BMI 33.1
== END 2024-12-25 10:05 | disposition home or self-care (01) ==
LOC: HO.HMCC 08:52
PROVIDERS: PCP Nurse Practitioner Family; Visit Provider Nurse Practitioner Family
DX: E11.9 Type 2 diabetes mellitus without complications (principal); Z00.00 Encounter for general adult medical examination without abnormal findings; Z13.9 Encounter for screening, unspecified

== ENCOUNTER → 2024-12-25 08:52 | Outpatient (BNVA) | payer BC, SELFPAY | PROVIDERS: PCP Nurse Practitioner Family; Visit Provider Nurse Practitioner Family | DX: Z00.00 Encounter for general adult medical examination without abnormal findings (principal); E11.9 Type 2 diabetes mellitus without complications | CPT/HCPCS: 83036; 96127 ==